=== PATIENT | male | born 1955 | race Caucasian/White ===

== ENCOUNTER 2016-08-08 06:32 | Emergency (ER) | payer OTHER ==
[~2016-08-08 06:32] MED LIST: MIRTAZAPINE15 MG PO; MS CONTIN15 MG PO; OXYCODONE HCL5 MG PO
--- NOTE | 2016-08-08 08:55 | DIAGNOSTIC IMAGING REPORT ---
PROCEDURE: CT ABD/PELVIS WITH CONTRAST CLINICAL INDICATION: ABDO PAIN, NAUSEA, HX OF ABDO SURGERIES FROM DIVERTICULITIS TECHNIQUE: 125 ml. of Isovue 300 were injected intravenously and axial images were obtained of the entire abdomen and pelvis with sagittal and coronal reformations. COMPARISON: CT abdomen/pelvis 10/05/2015. FINDINGS: ABDOMEN: Mild right basilar atelectasis. Heart size is normal. Liver, gallbladder, pancreas, spleen, adrenal glands and the kidneys are normal. Severe atherosclerosis of the aorta with SMA stent in place. Partial right colectomy with a shift of the large bowel to the right hemiabdomen. PELVIS: Partial sigmoidectomy. Multiple nondilated fluid filled loops of small bowel which may be normal or represent enteritis. Distended bladder. Normal prostate. Trace free fluid the pelvis, improved. No inflammatory changes or free air. Atherosclerosis of the iliac arteries with right iliac stent. Moderate degenerative changes of the spine. IMPRESSION: 1. Nonspecific fluid filled loops of small bowel,, normal versus enteritis 2. Partial right and sigmoid colectomies 3. Severe atherosclerosis with SMA and right iliac stents 4. Results discussed with Dr. Ervin All CT scans at this facility use dose modulation, iterative reconstruction, and/or weight-based dosing when appropriate to reduce radiation dose to as low as reasonably achievable.
--- NOTE | 2016-08-08 09:02 | ED NURSING NOTES ---
Clinical Report - Nurses [facility] [address] [place] [address] 08/08/2016 6:33 Patient: SAULO GALLARDO TRIAGE Triage time 06:41 Aug 08 2016. Acuity: LEVEL 3. Chief Complaint: ABDOMINAL PAIN, NAUSEA and DIARRHEA. 06:48 08/08/16. SEPSIS SCREEN: Sepsis Screen. Negative (no infection suspected/documented). RIVERA COMA SCORE: Rivera Coma Scale: 15- eyes open spontaneously (4); best verbal response- oriented x 4 (5); best motor response- obeys commands (6). --06:48 Rosette Conner R.N. 06:41 08/08/16. BP: 158/80 (regular adult cuff) taken on the left arm. HR: 52. RR: 18. O2 saturation: 100% on room air. Temp: 97.8 F (oral). Pain level now: 08/22. --06:48 Rosette Conner R.N. Weight: 52.6 kg stated. Height/Length: 66 inches Per Patient. BMI: 18.7. --06:45 Rosette Conner R.N. Medications Morphine Sulfate Oral (Tablet 30 mg) 1 tablet, 2x a day. --06:43 Rosette Conner R.N. Allergies Aspirin.(hives) Dilaudid.(hives) --06:43 Rosette Conner R.N. History Arrived by private vehicle. Historian: patient. Accompanied by family. Primary physician (Dr Sahu). Onset. (2 days gradually getting worse). ( Patient has CHRISTIAN, nausea, abd pain, sharp, crampy and "stinging"). He has had nausea and abdominal pain. Treatment DREDGE PIPEMAN: None. SOCIAL HX: Smoker- current status unknown. No alcohol use or drug use. No recent travel. No infectious disease exposure. No known contact with a sick individual. ABUSE ASSESSMENT: No report of abuse. --06:48 Rosette Conner R.N. PROBLEMS: Acute Pain. Aortic Stenosis. Rib Fracture. Fall. Contusion. Abdominal Pain. Gastroenteritis. Diverticulosis. Peptic Ulcer Disease. --06:44 Rosette Conner R.N. ADDITIONAL SURGERIES: Bowel resection. Bowel Surgery. Groin Stent Placement. Hernia Repair. Inguinal Hernia Repair. Testicle surgery. --06:44 Rosette Conner R.N. Interventions ID band on patient. To treatment room. --06:48 Rosette Conner R.N. PHYSICAL ASSESSMENT 06:49 08/08/16. Ambulatory to room. GENERAL / NEURO / PSYCH: Alert. Oriented X 4. Appears in pain. HEENT: Mucous membranes are pink. RESPIRATORY: Respirations not labored. Breath sounds within normal limits. CVS: Normal sinus rhythm noted. Capillary refill less than 2 seconds. GI / : The patient has had nausea. Abdomen soft and nontender. Abdominal tenderness. Guarding present. Bowel sounds within normal limits. SKIN: Skin is warm. --06:49 Rosette Conner R.N. NURSING PROGRESS NOTES 06:49 08/08/16. The plan of care for this patient has been created. Monitoring of patient in place. Patient gowned. Head of bed elevated. Reassurance given. Two patient identifiers checked. Call light placed in reach. Side rails up x 1. Bed placed in lowest position. Brakes of bed on. Patient ready for evaluation- chart flagged and ED physician notified. --06:49 Rosette Conner R.N. 06:59 08/08/2016 Site #1 started via IV in the right antecubital space with an 20g angiocath, with aseptic technique and good blood return; one attempt. Blood drawn: rainbow set. Labeled in the presence of the patient and sent to the lab. Saline lock flushed with 10 mL saline. --06:59 Rosette Conner R.N. Care transferred and report given (ZAYDA Arnett). --06:59 Rosette Conner R.N. 07:19 08/08/2016 Zofran (Ondansetron HCl) IVP 4 mg given over 2 minute(s) via site #1. Confirmed 5 rights. --07:21 Hope Olivera R.N. 07:21 08/08/2016 Started bag #1 1000 mL IV Fluids IV NS (Saline); at 1000 mL/hr via site #1 via IV pump. Confirmed 5 rights. IV patency established. IV site checked: no pain, redness, or swelling. IV flushed thoroughly pre- and post-medication administration. --07:21 Hope Olivera R.N. 07:22 08/08/2016 Morphine IVP 4 mg given over 2 minute(s) via site #1. Confirmed 5 rights and sedative warning given. --07:22 Hope Olivera R.N. 07:29 08/08/16. BP: 155/81. HR: 52. RR: 18. O2 saturation: 100%. --07:31 Hope Olivera R.N. Overall patient status- he states feels better. --07:31 Hope Olivera R.N. 08:49 08/08/2016 Morphine IVP 4 mg given over 2 minute(s) via site #1. Confirmed 5 rights. --08:54 Hope Olivera R.N. 09:15 08/08/2016 IV Fluids IV NS Discontinued: bag #1 completed. Total amount infused: 1000 mL. --11:31 Hope Olivera R.N. 09:30 08/08/2016 Site #1 removed upon discharge. Catheter intact. Bandage applied. --11:30 Hope Olivera R.N. DISPOSITION / DISCHARGE Departure time: 931. Condition at departure: improved. No learning barriers present. Discharge instructions provided and reviewed with the patient and spouse. Reviewed referral to family practice for followup (within 3 days). Verbalized understanding. Written instructions provided. The patient was discharged home and accompanied by spouse. He left the Emergency Department ambulatory and via private vehicle. Spouse driving. --11:29 Hope Olivera R.N. 09:31 08/08/16. BP: 164/83. HR: 58. RR: 18. O2 saturation: 100%. Pain level now: 06/22. --11:29 Hope Olivera R.N. Locked/Released at 08/08/2016 11:31 by Hope Olivera R.N.
--- NOTE | 2016-08-08 09:02 | ED CLINICAL REPORT ---
Clinical Report - Physicians/Mid Levels [facility] [address] [place] [address] 08/08/2016 6:33 Patient: SAULO GALLARDO Time Seen: 0701. Arrived- By private vehicle. Historian- patient. HISTORY OF PRESENT ILLNESS Chief Complaint: ABDOMINAL PAIN. This started past few months but worse for the past 2 days and is still present and worsening. It was abrupt in onset and has been intermittent but is not gone now. At its maximum, severity described as moderate. When seen in the E.D., severity described as moderate. Modifying factors- (no changed with food). Not worsened by anything. Not relieved by anything. It is described as located in the lower abdomen. The patient has had nausea, loss of appetite and diarrhea. No vomiting. No recent travel. Similar symptoms previously: None. Recent medical care: Not recently seen/assessed. REVIEW OF SYSTEMS No constipation, black stools, hematemesis or bloody stools. All systems otherwise negative, except as recorded above. PAST HISTORY See nurses notes. Medications: Morphine Sulfate Oral (Tablet 30 mg) 1 tablet, 2x a day. Allergies: Aspirin.(hives) Dilaudid.(hives). SOCIAL HISTORY Never smoker. No alcohol use or drug use. No recent travel. Is a local resident. ADDITIONAL NOTES The nursing notes have been reviewed. PHYSICAL EXAM Vital Signs: 08/08/2016 06:41 BP: 158/80. HR: 52. RR: 18. O2 saturation: 100%. Temp: 97.8 F. Pain level now: 6/10. Oxygen saturation normal. Appearance: Alert. Oriented X3. No acute distress. Eyes: Pupils equal, round and reactive to light. Eyes normal inspection. ENT: Ears normal. Nose normal. Pharynx normal. Neck: Normal inspection. Neck supple. CVS: Normal heart rate and rhythm. Heart sounds normal. Pulses normal. Respiratory: No respiratory distress. Breath sounds normal. Chest nontender. No rales, rhonchi or wheezes. Abdomen: Soft and nontender. (hyperactive bowel sounds. Negative Leslie's. No tenderness at McBurney's. No rebound or guarding.). Skin: Skin warm and dry. Normal skin color. No rash. Normal skin turgor. (No jaundice). Extremities: Extremities exhibit normal ROM. No lower extremity edema. Neuro: Oriented X 3. No motor deficit. No sensory deficit. LABS, X-RAYS, AND EKG Laboratory Tests: CBC w Diff: (KATIE: 08/08/2016 06:55) ( [facility] 07:39) Final results Test Result Flag Units (Reference) WHITE BLOOD COUNT 4.7 K/uL (4.5-11.5) RED BLOOD COUNT 4.09 L M/uL (4.50-5.90) HEMOGLOBIN 13.1 L gm/dL (13.5-17.5) HEMATOCRIT 38.9 L % (41.0-53.0) MEAN CELL VOLUME 95 fL (80-100) MEAN CORPUSCULAR HGB 32 pg (26-34) MEAN CORPUSCULAR HGB CONC 34 g/dL (31-37) RED CELL DISTRIBUTION WIDTH 13.4 % (11.6-14.8) PLATELET COUNT 272 K/uL (150-400) NEUTROPHIL % 57.3 % (50-75) LYMPH % 30.1 % (25-40) MONO % 8.6 % (3-14) EOSINOPHIL % 2.7 % (0-4) BASOPHIL % 1.3 % (0-2) CMP: (KATIE: 08/08/2016 06:55) ( [facility] 08/08/2016 07:48) Final results Test Result Flag Units (Reference) GLUCOSE 104 mg/dL (70-110) BUN 5 L mg/dL (7-18) CREATININE 0.8 mg/dL (0.6-1.3) Estimated GFR >60 mL/min Estimated GFR- >60 mL/min Note: Persistent reduction over 3 months in eGFR<60 mL/min/1.73 m2 defines CKD. Patients with eGFR values>=60 mL/min/1.73 m2 may also have CKD if evidence ofpersistent proteinuria. Additional information may be foundat www.kidney.org. SODIUM 142 mmol/L (136-145) POTASSIUM 3.5 mmol/L (3.5-5.1) CHLORIDE 104 mmol/L (98-107) CARBON DIOXIDE 29 mmol/L (21-32) CALCIUM 8.5 mg/dL (8.5-10.1) TOTAL PROTEIN 7.5 g/dL (6.4-8.2) ALBUMIN 4.0 g/dL (3.3-5.0) BILIRUBIN, TOTAL 2.0 H mg/dL (0.0-1.0) ALKALINE PHOSPHATASE 121 H U/L (46-116) AST (SGOT) 19 U/L (15-37) ALT (SGPT) 29 U/L (12-78) LIPASE 148 U/L (73-393) . PROGRESS AND PROCEDURES Course of Care: the patient is a pleasant 61-year-old male with past medical history significant for abdominal surgery secondary to diverticulitis presenting for a vaginal abdominal pain. Patient is reporting symptoms that it gotten worse for the past 2 days. Patient reports that the symptoms however has been intermittent for the past month. Had discussion with the patient in regards to possible causes for the patient's discomfort here in department today includingrecurrence of the diverticulitis or abscess formation. Because of these possible etiologies for the patient's pain, CT scan was recommended. Patient also been evaluated with laboratory studies including urinalysis. Patient is agreeable to the treatment plan. Pain medication as been ordered. The patient's workup was unremarkable for the findings above. Patient with mild elevation in liver enzymes. Patient also with a small amount of fluid noted in the distal colon which could represent gastroenteritis. Because the patient's symptoms here in the emergency department, viral etiology likely favored. Patient will be treated with a antacid medication as well as nausea medications and antidiarrheals. Patient be instructed to follow-up with his primary care doctor and possible referral to gastroenterology. Did have a discussion with the patient in regards to medications that he is on currently. Patient in these patients spouse was wondering about the statin he was on as well as the aspirin. Recommended patient continue with the aspirin because of the stents that were placed. Also recommended patient continue with the statin however this is less vital compared to the aspirin. Patient does not have a surgical abdomen at this time. And the CT scan is overall unremarkable. Laboratory studies also do not show any significant abnormalities requiring the patient to be admitted to the hospital or require further emergency department workup/evaluation. Patient continued to be nontoxic. Repeat examination continues to be benign. Patient is a good outpatient candidate. Discussed with the patient and thesepatients spouse his workup here in the emergency department including diagnosis, home care, follow-up, and return precautions. All questions have been answered. The patient expressed understanding of these instructions and was agreeable to them. Disposition: Discharged. Condition: good. CLINICAL IMPRESSION Acute abdominal pain. (lower abdomen). Diarrhea (acute). Moderate nausea (acute). No vomiting. INSTRUCTIONS Warnings: GENERAL WARNINGS: Return or contact your physician immediately if your condition worsens or changes unexpectedly, if not improving as expected, or if other problems arise. SPECIFICALLY, return if you develop pain, fever, vomiting, the inability to keep fluids down, blood in vomitus, blood in diarrhea, fainting or lightheadedness. Your Current Medications: CONTINUE TAKING THE FOLLOWING MEDICATIONS: Morphine Sulfate Oral : Tablet 30 mg, 1 tablet 2x a day. Prescription Medications: Zofran (orally disintegrating tablets) 4 mg: take 1 orally every 8 hours as needed for nausea and vomiting. Dispense ten (10). No refill. Substitution is permissible. Pepcid 20 mg: take 1 orally every 12 hours as needed for indigestion, upset stomach or heartburn. Dispense thirty (30). No refills. Substitution is permissible. OTC Medications: Imodium (available over the counter): take according to label instructions. Follow-up: Return to the emergency department as needed. Follow up with your doctor in three days. Reason for referral: recheck today's concerns. Summary of care provided to patient via paper. Screening today revealed the patient's blood pressure to be in the normal range. The patient should follow up with a primary care provider for blood pressure management. Understanding of the discharge instructions verbalized by patient. (Electronically signed by Royal Ervin Dr. 08/08/2016 9:09)
--- NOTE | 2016-08-08 09:02 | ED ORDER SUMMARY ---
..... Patient: SAULO GALLARDO OrderSheet [facility] VisitID: [id number] [address] [place] [address] 61y, M Registration Date/Time: 08/08/2016 ORDER SHEET Weight: 52.6 kg (stated) Allergies: Aspirin, Dilaudid GENERAL ORDERS: CT Abd/Pel w Cont (No) (N/A) Urgent (07:08 08/08/2016 Daxa Berrios) (Ack 7:13 Gretta ER Bd Special Education Teacher) (8:17 IJurca ER Tech1) CBC w Diff Urgent (07:08/08/2016 Daxa Berrios) (Ack 7:13 Gretta ER Bd Special Education Teacher) (7:48 LSullivan R.N.) CMP Urgent (07:08/08/2016 Daxa Berrios) (Ack 7:13 Gretta ER Bd Special Education Teacher) (7:48 LSullivan R.N.) UA-Culture if indicated Urgent (07:08/08/2016 Daxa Berrios) (Ack 7:13 Gretta ER Bd Special Education Teacher) (Cancelled: Unable to [id number] LSullivan R.N.) Lipase Urgent (07:08/08/2016 Daxa Berrios) (Ack 7:13 Gretta ER Bd Special Education Teacher) (7:48 LSullivan R.N.) MEDICATION ORDERS: IV FLUIDS: IV NS : initial bolus 1000 mL (1000 mL/hr), then none - for X1 (NOW) (07:08 08/08/2016 Daxa Berrios) (7:21 LSullivan R.N.) Morphine IV 4 mg (HIGH ALERT MEDICATION, NOW) (07:09 08/08/2016 Daxa Berrios) (7:22 LSullivan R.N.) Zofran IV 4 mg (NOW) (07:08/08/2016 Daxa Berrios) (7:21 LSullivan R.N.) Morphine IV 4 mg (HIGH ALERT MEDICATION, NOW) (08:40 08/08/2016 Daxa Berrios) (8:54 LSullivan R.N.) ORDER SHEET NOTES: [Electronically signed by Royal Ervin Dr. (09:09 08/08/2016)] [Electronically signed by Hope Olivera R.N. (08/08/2016)] [Electronically locked/signed by Hope Olivera R.N. (08/08/2016)]
--- NOTE | 2016-08-08 09:02 | ED ORDER SUMMARY ---
..... Patient: SAULO GALLARDO OrderSheet [facility] VisitID: [id number] [address] [place] [address] 61y, M Registration Date/Time: 08/08/2016 ORDER SHEET Weight: 52.6 kg (stated) Allergies: Aspirin, Dilaudid GENERAL ORDERS: CT Abd/Pel w Cont (No) (N/A) Urgent (07:08 08/08/2016 Daxa Berrios) (Ack 7:13 Gretta ER Coffee Host) (8:17 IJurca ER Tech1) CBC w Diff Urgent (07:08/08/2016 Daxa Berrios) (Ack 7:13 Gretta ER Coffee Host) (7:48 LSullivan R.N.) CMP Urgent (07:08/08/2016 Daxa Berrios) (Ack 7:13 Gretta ER Coffee Host) (7:48 LSullivan R.N.) UA-Culture if indicated Urgent (07:08/08/2016 Daxa Berrios) (Ack 7:13 Gretta ER Coffee Host) (Cancelled: Unable to [id number]:30 LSullivan R.N.) Lipase Urgent (07:08/08/2016 Daxa Berrios) (Ack 7:13 Gretta ER Coffee Host) (7:48 LSullivan R.N.) MEDICATION ORDERS: IV FLUIDS: IV NS : initial bolus 1000 mL (1000 mL/hr), then none - for X1 (NOW) (07:08 08/08/2016 Daxa Berrios) (7:21 LSullivan R.N.) Morphine IV 4 mg (HIGH ALERT MEDICATION, NOW) (07:09 08/08/2016 Daxa Berrios) (7:22 LSullivan R.N.) Zofran IV 4 mg (NOW) (07:08/08/2016 Daxa Berrios) (7:21 LSullivan R.N.) Morphine IV 4 mg (HIGH ALERT MEDICATION, NOW) (08:40 08/08/2016 Daxa Berrios) (8:54 LSullivan R.N.) ORDER SHEET NOTES: [Electronically signed by Royal Ervin Dr. (09:09 08/08/2016)] [Electronically signed by Hope Olivera R.N. (08/08/2016)] [Electronically locked/signed by Hope Olivera R.N. (08/08/2016)]
--- NOTE | 2016-08-08 11:32 | ED DISCHARGE INSTRUCTIONS ---
Patient: SAULO GALLARDO General Instructions [facility] VisitID: [id number] [place] [address] 61y, M Registration Date/Time: 08/08/2016 Acute abdominal pain. (lower abdomen). Diarrhea (acute). Moderate nausea (acute). No vomiting. INSTRUCTIONS Warnings: GENERAL WARNINGS: Return or contact your physician immediately if your condition worsens or changes unexpectedly, if not improving as expected, or if other problems arise. SPECIFICALLY, return if you develop pain, fever, vomiting, the inability to keep fluids down, blood in vomitus, blood in diarrhea, fainting or lightheadedness. Your Current Medications: CONTINUE TAKING THE FOLLOWING MEDICATIONS: Morphine Sulfate Oral : Tablet 30 mg, 1 tablet 2x a day. Prescription Medications: Zofran (orally disintegrating tablets) 4 mg: take 1 orally every 8 hours as needed for nausea and vomiting. Dispense ten (10). No refill. Substitution is permissible. Pepcid 20 mg: take 1 orally every 12 hours as needed for indigestion, upset stomach or heartburn. Dispense thirty (30). No refills. Substitution is permissible. OTC Medications: Imodium (available over the counter): take according to label instructions. Follow-up: Return to the emergency department as needed. Follow up with your doctor in three days. Reason for referral: recheck today's concerns. Summary of care provided to patient via paper. Screening today revealed the patient's blood pressure to be in the normal range. The patient should follow up with a primary care provider for blood pressure management. Understanding of the discharge instructions verbalized by patient. ADDITIONAL INFORMATION Abdominal Pain,Uncertain Cause [Male] Based on your visit today, the exact cause of your abdominalpain is not clear. Your exam and tests do not indicate a dangerous cause at this time. However, the signs of a serious problem may take more time to appear. Although your evaluation was reassuring today, sometimes early in the course of many conditions, exam and lab tests can appear normal. Therefore, it is important for you to watch for any new symptoms or worsening of your condition. Causes It may not be obvious what caused your symptoms. Pay attention to things that do seem to make your symptoms worse or better and discuss this with your doctor when you follow up. Diagnosis The evaluation of abdominal pain in the emergency department may onlyrequire an exam by the doctor or it may include blood, urine or imaging studies, depending on many factors. Sometimes exams and tests can identify a cause but in many cases, a clear cause is not found. Further testing at follow up visits may help to suggest a clear diagnosis. Home Care Rest as much as possible until your next exam. Try to avoid any medications (unless otherwise directed by your doctor), foods, activities, or other factors that you may have contributed to your symptoms. Try to eat foods that you know that you have tolerated well in the past. Certain diets may be recommended for some conditions that cause abdominal pain. However, since the cause of your symptoms may not be clear, discuss your diet more with your primary care provider or specialist for further recommendations. Eating several small meals per day as opposed to 2 or 3 larger meals may help. Monitor closely for anything that may make your symptoms worse or better. Pay close attention to symptoms below that may indicate worsening of your condition. Follow Up and Precautions See your doctoras instructed or sooneror if your symptoms are not improving.In some cases, you may need more testing. When to Seek Medical Attention Contact your doctor or see medical attention ifany of the following occur: Pain is becoming worse You are unable to take your medications due to excessive vomiting Swelling of the abdomen Fever of 100.4F (38C) or higher, or as directed by your health care provider Blood in vomit or bowel movements (dark red or black color) Jaundice (yellow color of eyes and skin) New onset of weakness, dizziness or fainting New onset of chest, arm, back, neck or jaw pain Diarrhea, Uncertain Cause (Adult, Report Pending) Diarrhea has several possible causes. Commonstomach fluis caused by a virus. Food poisoning, bacteria or parasites are other causes for diarrhea. Only diarrhea caused by bacteria or parasites requires treatment with an antibiotic. Diarrhea from a virus or food poisoning improves with simple home treatment. A stool sample is needed to make the diagnosis of an infection with bacteria or parasites. Up to three stool specimens may be required to diagnose This may take up to two days to get the result. It may be necessary to wait until the stool test is complete to make the diagnosis and select the best antibiotic to prescribe. Home Care: If symptoms are severe, rest at home for the next 24 hours or until you are feeling better. You may use acetaminophen (Tylenol) or ibuprofen (Motrin, Advil) to control fever, unless another medicine was prescribed. [NOTE: If you have chronic liver or kidney disease or ever had a stomach ulcer or GI bleeding, talk with your doctor before using these medicines.] (Aspirin should never be used in anyone under 18 years of age who is ill with a fever. It may cause severe liver damage.) Avoid tobacco, caffeine and alcohol, which may worsen your symptoms. If anti-diarrhea medicine was prescribed, take this only as directed. Sometimes anti-diarrhea medicine can make your condition worse if the cause is an infectious diarrhea. Therefore, anti-diarrhea medicine should not be taken for this condition unless advised by your doctor. During The First 12-24 Hours follow the diet below: BEVERAGES: Sport drinks like Gatorade, soft drinks without caffeine; alber chris, mineral water (plain or flavored), decaffeinated tea and coffee. SOUPS: Clear broth, consomm and bouillon DESSERTS: Plain gelatin (Jell-O), popsicles and fruit juice bars. During The Next 24 Hours you may add the following to the above: Hot cereal, plain toast, bread, rolls, crackers Plain noodles, rice, mashed potatoes, chicken noodle or rice soup Unsweetened canned fruit (avoid pineapple), bananas Limit fat intake to less than 15 grams per day by avoiding margarine, butter, oils, mayonnaise, sauces, gravies, fried foods, peanut butter, meat, poultry and fish. Limit fiber; avoid raw or cooked vegetables, fresh fruits (except bananas) and bran cereals. Limit caffeine and chocolate. No spices or seasonings except salt. During The Next 24 Hours Gradually resume a normal diet, as you feel better and your symptoms lessen. Follow Up with your doctor or as advised if you are not improving over the next two days. If you were asked to bring a specimen from home, bring the sample on the day of collection. You may call in 2 days (or as directed) for the results. Get Prompt Medical Attention if any of the following occur: Increasing abdominal pain or constant lower right abdominal pain Continued vomiting (unable to keep liquids down) Frequent diarrhea (more than 5 times a day) Blood in vomit or stool (black or red color) Reduced oral intake Dark urine, reduced urine output Weakness, dizziness, fainting Drowsiness, confusion, stiff neck or seizure Fever of 100.4F (38C) oral or higher, not better with fever medication New rash Ondansetron Oral disintegrating tablet What is this medicine? ONDANSETRON (on JANN se rashad) is used to treat nausea and vomiting caused by chemotherapy. It is also used to prevent or treat nausea and vomiting after surgery. How should I use this medicine? These tablets are made to dissolve in the mouth. Do not try to push the tablet through the foil backing. With dry hands, peel away the foil backing and gently remove the tablet. Place the tablet in the mouth and allow it to dissolve, then swallow. While you may take these tablets with water, it is not necessary to do so. Talk to your fitter and turner regarding the use of this medicine in children. Special care may be needed. What side effects may I notice from receiving this medicine? Side effects that you should report to your doctor or health student career development specialist as soon as possible: allergic reactions like skin rash, itching or hives, swelling of the face, lips, or tongue breathing problems dizziness fast or irregular heartbeat feeling faint or lightheaded, falls fever and chills swelling of the hands and feet tightness in the chest Side effects that usually do not require medical attention (report to your doctor or health student career development specialist if they continue or are bothersome): constipation or diarrhea headache What may interact with this medicine? Do not take this medicine with any of the following medications: -apomorphine -cisapride -dofetilide -dronedarone -pimozide -thioridazine -ziprasidone This medicine may also interact with the following medications: -carbamazepine -phenytoin -rifampicin -tramadol -other medicines that prolong the QT interval (cause an abnormal heart rhythm) What if I miss a dose? If you miss a dose, take it as soon as you can. If it is almost time for your next dose, take only that dose. Do not take double or extra doses. Where should I keep my medicine? Keep out of the reach of children. Store between 2 and 30 degrees C (36 and 86 degrees F). Throw away any unused medicine after the expiration date. What should I tell my health care provider before I take this medicine? They need to know if you have any of these conditions: heart disease history of irregular heartbeat liver disease low levels of magnesium or potassium in the blood an unusual or allergic reaction to ondansetron, granisetron, other medicines, foods, dyes, or preservatives or trying to get breast-feeding What should I watch for while using this medicine? Check with your doctor or health student career development specialist as soon as you can if you have any sign of an allergic reaction. Famotidine Oral tablet What is this medicine? FAMOTIDINE (fa GUIDO garrett) is a type of antihistamine that blocks the release of stomach acid. It is used to treat stomach or intestinal ulcers. It can also relieve heartburn from acid reflux. How should I use this medicine? Take this medicine by mouth with a glass of water. Follow the directions on the prescription label. If you only take this medicine once a day, take it at bedtime. Take your doses at regular intervals. Do not take your medicine more often than directed. Talk to your fitter and turner regarding the use of this medicine in children. Special care may be needed. What side effects may I notice from receiving this medicine? Side effects that you should report to your doctor or health student career development specialist as soon as possible: agitation, nervousness confusion hallucinations skin rash, itching Side effects that usually do not require medical attention (report to your doctor or health student career development specialist if they continue or are bothersome): constipation diarrhea dizziness headache What may interact with this medicine? delavirdine itraconazole ketoconazole What if I miss a dose? If you miss a dose, take it as soon as you can. If it is almost time for your next dose, take only that dose. Do not take double or extra doses. Where should I keep my medicine? Keep out of the reach of children. Store at room temperature between 15 and 30 degrees C (59 and 86 degrees F). Do not freeze. Throw away any unused medicine after the expiration date. What should I tell my health care provider before I take this medicine? They need to know if you have any of these conditions: kidney or liver disease trouble swallowing an unusual or allergic reaction to famotidine, other medicines, foods, dyes, or preservatives or trying to get breast-feeding What should I watch for while using this medicine? Tell your doctor or health student career development specialist if your condition does not start to get better or if it gets worse. Finish the full course of tablets prescribed, even if you feel better. Do not take with aspirin, ibuprofen or other antiinflammatory medicines. These can make your condition worse. Do not smoke cigarettes or drink alcohol. These cause irritation in your stomach and can increase the time it will take for ulcers to heal. If you get black, tarry stools or vomit up what looks like coffee grounds, call your doctor or health student career development specialist at once. You may have a bleeding ulcer. You have been given the following additional information: Abdominal Pain, Unknown Cause, (Male) Diarrhea, Unk Cause (Adult) Report Pendg Ondansetron Oral disintegrating tablet Famotidine Oral tablet (Electronically signed by Royal Ervin Dr. 08/08/2016 9:09)
--- NOTE | 2016-08-08 11:32 | ED MED RECONCILIATION SUMMARY ---
Patient: SAULO GALLARDO Medication Reconciliation Report [facility] VisitID: [id number] [address] [place] [address] 61y, M Registration Date/Time: 08/08/2016 Weight: 52.6 kg Height/Length: 66 in. BMI: 18.7 ALLERGIES: Aspirin, Dilaudid The patient's Home Medications are listed below: CONTINUE TAKING THE FOLLOWING MEDICATIONS: Morphine Sulfate Oral (30 mg) 1 tablet, 2x a day The source(s) of the original Home Medication information: Not obtained. The following Medications were given to the patient in the Emergency Department: IV NS IV Fluids bolus 0, then 1000 mL/hr, administered: 08/08/2016 7:21:00 AM Zofran [IVP] IVP 4 mg, administered: 08/08/2016 7:19:00 AM Morphine [IVP] IVP 4 mg, administered: 08/08/2016 7:22:00 AM Morphine [IVP] IVP 4 mg, administered: 08/08/2016 8:49:00 AM The following Medications were prescribed to the patient: Zofran (orally disintegrating tablets) 4 mg: take 1 orally every 8 hours as needed for nausea and vomiting. Dispense ten (10). No refill. Substitution is permissible. -- Royal Ervin Dr. Pepcid 20 mg: take 1 orally every 12 hours as needed for indigestion, upset stomach or heartburn. Dispense thirty (30). No refills. Substitution is permissible. -- Royal Ervin Dr. Imodium (available over the counter): take according to label instructions. -- Royal Ervin Dr.
--- NOTE | 2016-08-08 11:32 | ED MAR SUMMARY ---
..... Medication Administration Record [facility] [address] [place] [address] Patient: SAULO GALLARDO Visit ID: [id number] 61y, M Weight: 52.6 kg Height/Length: 66 in BMI: 18.7 ALLERGIES: Aspirin, Dilaudid Given 07:19 08/08/2016 Hope Olivera R.N. Medication Administered: ZOFRAN [IVP] (ONDANSETRON HCL), Dose: 4 mg IVP over 2 minute(s), Site: #1 right AC. Medication Ordered: Zofran IV 4 mg (NOW). Start 07:21 08/08/2016 Hope Olivera R.N., Stop 09:15 08/08/2016 Hope Olivera R.N. Medication Administered: IV NS (SALINE), Dose: IV Fluids, Rate: 1000 mL/hr, Dispensed: 1000 mL bag, Site: #1 right AC. Medication Ordered: IV NS : initial bolus 1000 mL (1000 mL/hr), then none - for X1 (NOW). Given 07:22 08/08/2016 Hope Olievra R.N. Medication Administered: MORPHINE [IVP], Dose: 4 mg IVP over 2 minute(s), Site: #1 right AC. Medication Ordered: Morphine IV 4 mg (HIGH ALERT MEDICATION, NOW). Given 08:49 08/08/2016 Hope Olivera R.N. Medication Administered: MORPHINE [IVP], Dose: 4 mg IVP over 2 minute(s), Site: #1 right AC. Medication Ordered: Morphine IV 4 mg (HIGH ALERT MEDICATION, NOW).
--- NOTE | 2016-08-08 11:32 | ED MAR SUMMARY ---
..... Medication Administration Record [facility] [address] [place] [address] Patient: SAULO GALLARDO Visit ID: [id number] 61y, M Weight: 52.6 kg Height/Length: 66 in BMI: 18.7 ALLERGIES: Aspirin, Dilaudid Given 07:19 08/08/2016 Hope Olivera R.N. Medication Administered: ZOFRAN [IVP] (ONDANSETRON HCL), Dose: 4 mg IVP over 2 minute(s), Site: #1 right AC. Medication Ordered: Zofran IV 4 mg (NOW). Start 07:21 08/08/2016 Hope Olivera R.N., Stop 09:15 08/08/2016 Hope Olivera R.N. Medication Administered: IV NS (SALINE), Dose: IV Fluids, Rate: 1000 mL/hr, Dispensed: 1000 mL bag, Site: #1 right AC. Medication Ordered: IV NS : initial bolus 1000 mL (1000 mL/hr), then none - for X1 (NOW). Given 07:22 08/08/2016 Hope Olivera R.N. Medication Administered: MORPHINE [IVP], Dose: 4 mg IVP over 2 minute(s), Site: #1 right AC. Medication Ordered: Morphine IV 4 mg (HIGH ALERT MEDICATION, NOW). Given 08:49 08/08/2016 Hope Olivera R.N. Medication Administered: MORPHINE [IVP], Dose: 4 mg IVP over 2 minute(s), Site: #1 right AC. Medication Ordered: Morphine IV 4 mg (HIGH ALERT MEDICATION, NOW).
--- NOTE | 2016-08-08 11:32 | ED MED RECONCILIATION SUMMARY ---
Patient: SAULO GALLARDO Medication Reconciliation Report [facility] VisitID: [id number] [address] [place] [address] 61y, M Registration Date/Time: 08/08/2016 Weight: 52.6 kg Height/Length: 66 in. BMI: 18.7 ALLERGIES: Aspirin, Dilaudid The patient's Home Medications are listed below: CONTINUE TAKING THE FOLLOWING MEDICATIONS: Morphine Sulfate Oral (30 mg) 1 tablet, 2x a day The source(s) of the original Home Medication information: Not obtained. The following Medications were given to the patient in the Emergency Department: IV NS IV Fluids bolus 0, then 1000 mL/hr, administered: 08/08/2016 7:21:00 AM Zofran [IVP] IVP 4 mg, administered: 08/08/2016 7:19:00 AM Morphine [IVP] IVP 4 mg, administered: 08/08/2016 7:22:00 AM Morphine [IVP] IVP 4 mg, administered: 08/08/2016 8:49:00 AM The following Medications were prescribed to the patient: Zofran (orally disintegrating tablets) 4 mg: take 1 orally every 8 hours as needed for nausea and vomiting. Dispense ten (10). No refill. Substitution is permissible. -- Royal Ervin Dr. Pepcid 20 mg: take 1 orally every 12 hours as needed for indigestion, upset stomach or heartburn. Dispense thirty (30). No refills. Substitution is permissible. -- Royal Ervin Dr. Imodium (available over the counter): take according to label instructions. -- Royal Ervin Dr.
== END 2016-08-08 09:32 | disposition home or self-care (01) ==
LOC: ED SRH 06:32
DX: R10.30 Lower abdominal pain, unspecified (principal); R19.7 Diarrhea, unspecified; R11.0 Nausea; Z79.899 Other long term (current) drug therapy; Z88.8 Allergy status to other drugs, medicaments and biological substances
CPT/HCPCS: 90100; 92235; 95059